=== PATIENT | female | born 2000 | race Two or more races ===

== ENCOUNTER 2023-11-16 11:11 | Outpatient (CLI) | payer OTHER | END 2023-11-16 11:12 | disposition home or self-care (01) | LOC: PRENATAL 11:11 | PROVIDERS: ATTEND Obstetrics & Gynecology Maternal & Fetal Medicine | DX: O36.80X0 Pregnancy with inconclusive fetal viability, not applicable or unspecified (principal); Z36.82 Encounter for antenatal screening for nuchal translucency ==

== ENCOUNTER → 2023-11-29 12:01 | Outpatient (CLI) | payer OTHER | END | disposition home or self-care (01) | LOC: PRENATAL 12:01 | PROVIDERS: ATTEND Obstetrics & Gynecology Maternal & Fetal Medicine | DX: Z76.1 Encounter for health supervision and care of foundling (principal) ==

== ENCOUNTER 2024-01-09 08:08 | Outpatient (CLI) | payer OTHER | END 2024-01-09 08:11 | disposition home or self-care (01) | LOC: PRENATAL 08:08 | PROVIDERS: ATTEND Obstetrics & Gynecology Maternal & Fetal Medicine | DX: O35.9XX0 Maternal care for (suspected) fetal abnormality and damage, unspecified, not applicable or unspecified (principal); O35.3XX0 Maternal care for (suspected) damage to fetus from viral disease in mother, not applicable or unspecified; O44.02 Complete placenta previa NOS or without hemorrhage, second trimester; Z3A.20 20 weeks gestation of pregnancy ==

== ENCOUNTER 2024-01-23 00:01 | Inpatient (IN) | payer OTHER ==
[2024-01-22 22:48] VITALS: BP 112/76
[2024-01-23] VITALS (7 sets, daily range): BP systolic 91–105; BP diastolic 51–69
[~2024-01-23] VITALS: Ht 160 cm; Wt 66.2 kg
[2024-01-23] MEDS ORDERED: PRENATAL CAPLE1 EAC1 PO (00:09)
[2024-01-23] MEDS ORDERED: RINGERS SOLUTION,LACTATED 1,000 ML IV SCH (00:15)
[2024-01-23 01:29] LABS: URINE APPEARANCE Clear; URINE BILIRRUBIN Negative (NEGATIVE); URINE BLOOD Large; URINE COLOR Yellow; URINE GLUCOSE Negative (NEGATIVE); URINE KETONE Negative (NEGATIVE); URINE LEUKOCYTE Negative; URINE NITRATE Negative; URINE PROTEIN Negative (NEGATIVE); URINE UROBILINOGEN 0.2 E.U./dl
[2024-01-23 01:32] LABS: HEMATOCRIT 32.7 % (36.0-45.00); MEAN CELL VOLUME 88.3 fL (80.00-100.00); MEAN CORPUSCULAR HEMOGLOBIN 29.7 pg (27.00-32.0); MEAN CORPUSCULAR HGB CONC 33.6 g/dl (32.0-36.0); PLATELET COUNT 372 K/uL (150-450); RED BLOOD COUNT 3.71 M/uL (4.00-6.00); RED CELL DISTRIBUTION WIDTH 13.7 % (11.5-14.5)
[2024-01-23 01:33] LABS: URINE BACTERIA 539.1 uL (0.0-1933); URINE EPITHELIAL CELLS 20.4 uL (0.0-38.8); URINE RBC 7.1 uL (0.0-20.8); URINE WBC 8.3 uL (0.0-23.2)
[2024-01-24 03:09] VITALS: BP 83/53
[2024-01-24 06:31] VITALS: BP 110/67; O2SAT 98
[2024-01-24 10:05] VITALS: BP 109/70
[2024-01-24 14:05] VITALS: BP 112/56
[2024-01-24 15:56] VITALS: BP 103/68
[2024-01-25 00:21] VITALS: BP 102/68
[2024-01-25 06:18] VITALS: BP 97/62
[2024-01-25 08:14] VITALS: BP 104/71; O2SAT 100
[2024-01-25 11:59] VITALS: BP 99/53
[2024-01-25 15:47] VITALS: BP 104/68
[2024-01-26 01:46] VITALS: BP 102/64
[2024-01-26 08:47] VITALS: BP 111/73
[2024-01-26 11:42] VITALS: BP 111/73
[2024-01-26 16:45] VITALS: BP 94/61
== END 2024-01-26 17:17 | disposition home or self-care (01) | DRG 833 ==
LOC: OBS/DEL 00:01 → OB/GYN 20:20 → LDR 20:20 → OB/GYN 01-24 08:19
PROVIDERS: ADMIT Obstetrics & Gynecology; ATTEND Obstetrics & Gynecology
PROC: 4A1HXCZ Monitoring of Products of Conception, Cardiac Rate, External Approach (ICD-10-PCS; principal; 2024-01-23)
PROC: BY4CZZZ Ultrasonography of Second Trimester, Single Fetus (ICD-10-PCS; 2024-01-23)
PROC: BY4CZZZ Ultrasonography of Second Trimester, Single Fetus (ICD-10-PCS; 2024-01-26)
PROC: BU4CZZZ Ultrasonography of Uterus and Ovaries (ICD-10-PCS; 2024-01-26)
DX: O44.02 Complete placenta previa NOS or without hemorrhage, second trimester (principal); O44.22 Partial placenta previa NOS or without hemorrhage, second trimester; O26.842 Uterine size-date discrepancy, second trimester; O26.852 Spotting complicating pregnancy, second trimester; Z3A.22 22 weeks gestation of pregnancy; Z20.822 Contact with and (suspected) exposure to COVID-19

== ENCOUNTER → 2024-03-06 09:35 | Outpatient (CLI) | payer OTHER ==
[~2024-03-06 09:35] MED LIST: PRENATAL CAPLE1 EAC1 PO
== END | disposition home or self-care (01) ==
LOC: PRENATAL 09:35
PROVIDERS: ATTEND Obstetrics & Gynecology Maternal & Fetal Medicine
DX: O26.849 Uterine size-date discrepancy, unspecified trimester (principal); O44.00 Complete placenta previa NOS or without hemorrhage, unspecified trimester; Z3A.28 28 weeks gestation of pregnancy

== ENCOUNTER → 2024-04-17 09:04 | Outpatient (CLI) | payer OTHER | END | disposition home or self-care (01) | LOC: PRENATAL 09:04 | PROVIDERS: ATTEND Obstetrics & Gynecology Maternal & Fetal Medicine | DX: O26.849 Uterine size-date discrepancy, unspecified trimester (principal); O36.8199 Decreased fetal movements, unspecified trimester, other fetus; Z3A.33 33 weeks gestation of pregnancy ==

== ENCOUNTER 2024-05-04 11:40 | Inpatient (IN) | payer OTHER ==
[~2024-05-04] VITALS: Ht 160 cm; Wt 77.1 kg
[2024-05-04 11:47] LABS: HEMATOCRIT 30.8 % (36.0-45.00); MEAN CELL VOLUME 77.5 fL (80.00-100.00); MEAN CORPUSCULAR HEMOGLOBIN 25.2 pg (27.00-32.0); MEAN CORPUSCULAR HGB CONC 32.6 g/dl (32.0-36.0); PLATELET COUNT 396 K/uL (150-450); RED BLOOD COUNT 3.98 M/uL (4.00-6.00); RED CELL DISTRIBUTION WIDTH 15.6 % (11.5-14.5)
[2024-05-04 11:53] LABS: URINE APPEARANCE Clear; URINE BILIRRUBIN Negative (NEGATIVE); URINE BLOOD Negative; URINE COLOR Yellow; URINE GLUCOSE Negative (NEGATIVE); URINE KETONE Negative (NEGATIVE); URINE LEUKOCYTE Trace; URINE NITRATE Negative; URINE PROTEIN Negative (NEGATIVE); URINE UROBILINOGEN 0.2 E.U./dl
[2024-05-04 11:54] LABS: URINE EPITHELIAL CELLS 79.6 uL (0.0-38.8); URINE RBC 10.4 uL (0.0-20.8); URINE WBC 62.2 uL (0.0-23.2)
[2024-05-04 12:08] LABS: INR < 0.93; PARTIAL THROMBOPLASTIN TIME 24.5 SECONDS (22.0-34.0); PROTHROMBIN TIME 10.2 SECONDS (9.0-11.5)
[2024-05-04 12:25] LABS: ALBUMIN 2.9 gm/dL (3.4-5.0); BILIRUBIN TOTAL 0.23 mg/dL (0.3-1.2); CREATININE SERUM 0.55 mg/dL (0.55-1.02); GFR 138.21; GLOBULINA 4.2 G/DL (2.4-3.5); POTASSIUM 4.04 mEq/L (3.5-5.1); TOTAL PROTEIN 7.1 gm/dL (6.4-8.2)
[2024-05-04 12:47] LABS: RH POSITIVE
[2024-05-09 09:36] VITALS: BP 121/80
[2024-05-09] MEDS ORDERED: RINGERS SOLUTION,LACTATED 1,000 ML IV SCH ×2 (10:15→13:30)
[2024-05-09] MEDS ORDERED: AMPICILLIN SODIUM 2,000 MG VIAL IV STA (10:23)
[2024-05-09] MEDS ORDERED: AMPICILLIN SODIUM 2,000 MG VIAL IV SCH (10:30)
[2024-05-09] MEDS ORDERED: CEFAZOLIN SODIUM 1,000 MG VIAL IV SCH (11:30)
[2024-05-09] MEDS ORDERED: MORPHINE SULFATE 4 MG/ML CARTRIDGE IV PRN (12:30)
[2024-05-09] MEDS ORDERED: SIMETHICONE 125 MG CAPSULE PO SCH (13:00)
[2024-05-09] MEDS ORDERED: MORPHINE SULFATE 4 MG/ML VIAL IV ONE ×2 (13:10→13:55)
[2024-05-09] MEDS ORDERED: OXYTOCIN 1,000 ML IV SCH (13:30)
[2024-05-09] MEDS ORDERED: ERYTHROMYCIN BASE OPHT 1GM EACH TUBE OP ONE (13:30)
[2024-05-09] MEDS ORDERED: OXYTOCIN 10 UNITS/ML VIAL IV ONE (13:30)
[2024-05-09 15:48] VITALS: BP 120/81
[2024-05-09] MEDS ORDERED: DOCUSATE SODIUM 100MG CAP PO SCH (17:00)
[2024-05-09 17:56] LABS: HEMATOCRIT 33.1 % (36.0-45.00); HEMOGLOBIN 10.5 g/dL (12.0-15.00); MEAN CORPUSCULAR HEMOGLOBIN 24.7 pg (27.00-32.0); MEAN CORPUSCULAR HGB CONC 31.7 g/dl (32.0-36.0); PLATELET COUNT 383 K/uL (150-450); RED BLOOD COUNT 4.24 M/uL (4.00-6.00); RED CELL DISTRIBUTION WIDTH 15.8 % (11.5-14.5)
[2024-05-09 18:24] VITALS: BP 137/84
[2024-05-10 00:39] VITALS: BP 105/67
[2024-05-10] MEDS ORDERED: IBUprofen 800 MG TABLET PO SCH (09:00)
[2024-05-10 11:01] VITALS: BP 122/84
[2024-05-10 16:05] VITALS: BP 125/83
[2024-05-11 01:11] VITALS: BP 104/62
[2024-05-11 08:00] VITALS: BP 119/79
[2024-05-11 16:00] VITALS: BP 125/80
[2024-05-12 01:18] VITALS: BP 113/72
[2024-05-12 08:42] VITALS: BP 126/86
== END 2024-05-12 11:58 | disposition home or self-care (01) | DRG 788 ==
LOC: LDR 05-09 09:17 → OB/GYN 05-09 09:17 → O/R 05-09 12:50 → OB/GYN 05-09 13:30 → SURG 05-11 11:04 → OB/GYN 05-12 11:58
PROVIDERS: ADMIT Obstetrics & Gynecology; ATTEND Obstetrics & Gynecology
PROC: 4A1HXCZ Monitoring of Products of Conception, Cardiac Rate, External Approach (ICD-10-PCS; 2024-05-09)
PROC: 10D00Z1 Extraction of Products of Conception, Low, Open Approach (ICD-10-PCS; principal; 2024-05-09 11:20)
DX: O44.03 Complete placenta previa NOS or without hemorrhage, third trimester (principal); O99.824 Streptococcus B carrier state complicating childbirth; Z3A.37 37 weeks gestation of pregnancy; Z37.0 Single live birth; Z20.822 Contact with and (suspected) exposure to COVID-19